=== PATIENT | female | born 1965 | race Caucasian/White ===

== ENCOUNTER 2018-08-15 08:40 | Day surgery (SDC) | payer OTHER, SELFPAY ==
[2018-08-15] VITALS (7 sets, daily range): BP systolic 106–134; BP diastolic 69–82; PULSE 68–77; RESP 16–18; TEMP 36.7–36.9; O2SAT 94–99; BMI 33.7
--- NOTE | 2018-08-15 09:53 | P.PN_ITS ---
[facility] Anesthesia Checklist - Patient Identification Patient Identification: Arm Band - Structural Data Admitted From: Home Planned Operative Procedure/s: colonoscopy Consent for Planned Operative Procedure(s) Verified: Yes Verified Documents: Surgical Consent, History and Physical - NPO Status Verified Time NPO: 00:00 - Additional verifications Anesthesia Reactions: No - Airway Assessment C-Spine Mobility Assessed: Yes TMJ Mobility Assessed: Yes Dentition: Partials (partial upper plate) - Neurological Assessment Level of Consciousness: Awake, Alert - Anesthesia Plan Anesthesia Risk discussed: Yes Anesthesia Plan: Verified ASA Class: III Anesthesia Type: MAC [facility] History I have reviewed the patient's past medical history: Yes Medical History: Reports:: Depression, Diabetes Mellitus Type 2 (meds and insulin), Hypertension, Valvular Heart Disease (hx mitral valve prolapse (not sig enough to treat)) Denies:: Diabetes Mellitus Type 1, Internal Pacemaker, Lung Disease, Seizures *Have you ever received a pneumonia vaccine?: No *Have you received a flu vaccine this season?: Yes Laterality Cases: Right: Carpal Tunnel Release Other Surgeries: Yes: Cholecystectomy, Hysterectomy-Total. No: Pacemaker - *Social History *Occupational Status:: other *Travel in the last 8 weeks: None Family Hx:: No significant family history
[2018-08-15 10:02] LABS: POC Glucose,Bedside 198 (70-110)
--- NOTE | 2018-08-15 11:35 | P.PCN_ITS ---
[facility] Procedure Note Procedure Note:: Colonoscopy Procedure Report: Colonoscopy with cold snare polypectomy Endoscopist: Yosi Coleman II, MD Referring physician: Serenity Fuller MD ([facility]) Date of Procedure: August 15, 2018 Equipment: Olympus 180 variable stiffness pediatric colonoscope Sedation: MAC sedation Indication: Mrs. Cui is a 53-year-old female who has had a change in her bowel habits. The patient reports a history of psoriatic arthritis for which she is being treated with Humira and methotrexate for several years. The patient states for the past month she has had significant bloating and discomfort across her upper abdomen especially in the left upper quadrant where she is tender. She reports moderate bloating and gassiness. She reports no rectal bleeding but does note some mucus. She has had no weight loss and reports no family history of colon cancer. She does have some bowel irregularity with both constipation and diarrhea. She has never had a colonoscopy. Procedure: Prior to the procedure, a history and physical exam was performed, and patient's medications and allergies were reviewed. The risks, benefits and alternatives of the sedation and procedure were discussed with the patient. All questions were answered and informed consent was obtained. The patient was brought to the procedure room. Patient identification and proposed procedure were verified by the physician and the nurse. The patient was placed in a left lateral decubitus position and the scope was passed under direct vision. Throughout the procedure, the patient's blood pressure, pulse, and oxygen saturations were monitored continuously. The colonoscopy was accomplished without difficulty. The patient tolerated the procedure well. Findings: On digital rectal examination there was normal rectal tone. There were no external hemorrhoids. The colonoscope was introduced through the anal canal to the rectum and advanced to the cecum. The ileocecal valve and appendiceal orifice were identified. The scope was advanced a short distance into the ileum which appeared grossly normal. The scope was then withdrawn into the colon. There were 2 polyps in the ascending colon (3 and 5 mm polyps) and 2 polyps in the descending colon (4 and 6 mm) which were all removed via cold snare polypectomy. The remainder of the cecum, ascending, transverse, descending and sigmoid colon were normal. There was some angulation at the splenic flexure suggestive of splenic flexure syndrome. There were no mucosal abnormalities identified. Upon retroflexion within the rectum there were grade 1 internal hemorrhoids.The preparation was excellent throughout with [place] Preparation Score of 9. The cecal time was 12 minutes. Impression: 1. Colonic polyps x4 2. Grade 1 internal hemorrhoids Plan: I will follow-up the polyp histology and recommend repeat surveillance colonoscopy again in 3 to 5 years based upon the histology. 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 We will discuss treatment options. I would encourage dietary measures and fiber bowel regimen.
== END 2018-08-15 12:20 | disposition home or self-care (01) ==
LOC: OUTP 08:45
PROVIDERS: Visit Provider Internal Medicine Gastroenterology
PROC: 0DJD8ZZ Inspection of Lower Intestinal Tract, Via Natural or Artificial Opening Endoscopic (ICD-10-PCS; CPT 45378; principal; 2018-08-15 10:30)
DX: L40.50 Arthropathic psoriasis, unspecified (principal); K63.5 Polyp of colon; K64.0 First degree hemorrhoids; Z79.899 Other long term (current) drug therapy
CPT/HCPCS: 45385; 82962